=== PATIENT | female | born 1935 | race Caucasian/White ===

== ENCOUNTER 2016-10-16 09:12 | Emergency (ER) | payer OTHER ==
[~2016-10-16] VITALS: Ht 154.9 cm; Wt 59.0 kg
[2016-10-16 09:53] LABS: ABG SAMPLE TYPE ARTERIAL; BE(vivo) 2.1 mmol/L (-2 to +3); HCO3 26.5 mmol/L (22.0-26.0); LACTATE 1.12 mmol/L (0.5-2.0); O2(CT) 16.1 mL/dL (15.0-23.0); PCO2 40.6 mmHg (35.0-45.0); PO2 323.4 mmHg (80.0-100.0); pH 7.433 (7.360-7.450); sO2 99.7 % (92.0-98.0); tCO2 27.8 mmol/L (24.0-30.0)
[2016-10-16 09:54] LABS: O2Hb 81.8 % (92.0-98.0); STICK SITE R.BRACHIAL
[2016-10-16 11:34] VITALS: BP 153/64
== END 2016-10-16 12:25 | disposition home or self-care (01) ==
LOC: ER 09:12
PROVIDERS: Emergency Medicine
DX: T58.01XA Toxic effect of carbon monoxide from motor vehicle exhaust, accidental (unintentional), initial encounter (principal); V49.9XXA Car occupant (driver) (passenger) injured in unspecified traffic accident, initial encounter; Y93.89 Activity, other specified; Y92.89 Other specified places as the place of occurrence of the external cause; Y99.8 Other external cause status